=== PATIENT | male | born 2005 | race Caucasian/White ===

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

== ENCOUNTER 2023-07-26 15:41 | Outpatient (REF) | payer BC, SELFPAY ==
--- NOTE | 2023-07-26 15:30 | SKI_PTH ---
PATIENT: Frederick Lozano LOC: [facility] U#:[id number] AGE/SX: 18/M ROOM: RE07/26/[address]: Duran Davis : 2005 BED: DIS: 07/26/2023 SPEC #: [id number] RECD: 07/27/23 12:44 STATUS: CATALINO REQ #: [id number] MARGARITA: 07/26/23 15:[address]: Duran Davis DEPT: Surgical Specimen RECD BY: Myra Lema ENTERED: 07/27/23 12:45 SP TYPE: CATIE DIAZ DR: Unknown,Unknown Tissues: 1 - SKIN BIOPSY(SHAVE/PUNCH) Procedures: SKIN LEVEL 4 Comments: [id number]
== END 2023-07-26 15:42 | disposition home or self-care (01) ==
LOC: NCHCN 15:41
PROVIDERS: Visit Provider Family Medicine
DX: D22.72 Melanocytic nevi of left lower limb, including hip (principal)
CPT/HCPCS: 88305